=== PATIENT | male | born 1995 | race Caucasian/White ===

== ENCOUNTER → 2021-07-09 11:36 | Outpatient (CLI) | payer OTHER, MEDICAID, SELFPAY ==
[2021-07-09 18:58] LABS: Influenza A - CEPHEID Flu A NEGATIVE (NEGATIVE); Influenza B - CEPHEID Flu B NEGATIVE (NEGATIVE); Respiratory Syncytial Virus Negative (Negative)
[2021-07-09 19:00] LABS: COVID-19 CEPHEID PCR (VTM/NP) Negative (Negative)
== END ==
PROVIDERS: PCP Physician Assistant Medical; Visit Provider Physician Assistant Medical
DX: R11.2 Nausea with vomiting, unspecified (principal); H92.09 Otalgia, unspecified ear; R51.9 Headache, unspecified; Z20.822 Contact with and (suspected) exposure to COVID-19
CPT/HCPCS: 0241U

== ENCOUNTER → 2021-11-30 08:55 | Outpatient (CLI) | payer OTHER, MEDICAID, SELFPAY ==
[2021-11-30 22:14] LABS: COVID-19 CEPHEID PCR (VTM/NP) Negative (Negative)
[2021-11-30 23:01] LABS: Influenza A - CEPHEID Flu A NEGATIVE (NEGATIVE); Influenza B - CEPHEID Flu B NEGATIVE (NEGATIVE)
== END ==
PROVIDERS: PCP Physician Assistant Medical; Visit Provider Physician Assistant
DX: Z20.822 Contact with and (suspected) exposure to COVID-19 (principal); R51.9 Headache, unspecified
CPT/HCPCS: 0240U

== ENCOUNTER 2023-09-30 14:21 | Emergency (ER) | payer SELFPAY ==
--- NOTE | 2023-09-30 14:40 | DI.RAD.S_ITS ---
PROCEDURE: XR KNEE RT 3V INDICATIONS: Knee injury, laceration TECHNIQUE: 3 views of the knee were acquired. COMPARISON: None. FINDINGS: Bones: No fractures or dislocations. No suspicious bony lesions. Soft tissues: Prepatellar soft tissue laceration can be seen, with soft tissue gas and tiny radiopaque fragments. No joint effusion. No suspicious soft tissue calcifications. IMPRESSION: Prepatellar laceration seen, with soft tissue gas and tiny radiopaque fragments within the soft tissues. No associated fracture is seen. Dictated by: Adam Maradiaga M.D. on 09/30/2023 at 15:04 Approved by: Adam Maradiaga M.D. on 09/30/2023 at 15:05
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
[2023-09-30 17:04] VITALS: BP 118/61; PULSE 68; RESP 18; O2SAT 99
[2023-09-30] MEDS: LIDOCAINE/PRILOCAINE 5 GM TOP (17:12)
[2023-09-30] MEDS: LIDOCAINE 1% W/EPI 10 ML SUBCUT (17:12)
[2023-09-30] MEDS: KETOROLAC 30 MG/ML VIAL IM (17:53)
[2023-09-30] MEDS: BACITRACIN OINT 0.9 GM PCKT 2 APPLIC TOP (19:46)
[2023-09-30 19:59] VITALS: BP 120/59; PULSE 69; RESP 16; O2SAT 99
== END 2023-09-30 19:59 | disposition home or self-care (01) ==
PROVIDERS: Emergency Provider Student in an Organized Health Care Education/Training Program; PCP Physician Assistant Medical
DX: S81.021A Laceration with foreign body, right knee, initial encounter (principal); V28.09XA Other motorcycle driver injured in noncollision transport accident in nontraffic accident, initial encounter
CPT/HCPCS: 12002; 73562; 96372; 99283; J1885